=== PATIENT | female | born 1950 | race Caucasian/White ===

== ENCOUNTER 2021-07-30 05:31 | Day surgery (SDC) | payer MEDICARE ==
[~2021-07-30] VITALS: Ht 163 cm; Wt 67.0 kg
[~2021-07-30 05:31] MED LIST: ADVAIR 100-501 EACH INH; AMARYL2 MG PO; ASPIRIN CHEWABL81 MG PO; FLONASE ALLER15.8 ML; JANUVIA50 MG PO; LOVAZA1 GM PO; METFORMIN HCL500 MG PO; PRAVACHOL20 MG PO; PRINIVIL10 MG PO; SINGULAIR10 MG PO; SYNTHROID100 MCG PO; VITAMIN B122500 MC1 PO; VITAMIN D310 MC4 PO
[2021-07-31 06:40] LABS: BASOPHIL 0.2 % (0-2); EOSINOPHIL 0.3 % (0-7); HCT 30.5 % (37.0-47.0); HGB 9.8 g/dl (12.5-16.0); LYMPHOCYTE 11.2 % (15-48); MCH 32.1 pg (25.0-31.0); MCHC 32.1 g/dL (32.0-36.0); MPV 9.2 fL (6.0-9.5); NEUTROPHIL 80.8 % (41-80); NRBC 0; PLT 128 K/uL (150-400); RBC 3.05 M/uL (4.20-5.40); RDW 14.2 % (11.5-14.0)
[2021-07-31 07:07] LABS: BUN/CREAT RATIO (CALC) 14.9 RATIO; CREATININE 0.74 mg/dL (0.51-0.95); POTASSIUM 4.6 mmol/L (3.5-5.1)
[2021-07-31] MEDS ORDERED: XARELTO10 MG PO (09:04)
[2021-07-31] MEDS ORDERED: OXYCODONE-ACET1 EAC1 PO (09:04)
[2021-07-31] MEDS ORDERED: FEOSOL325 MG PO (09:04)
--- NOTE | 2021-07-31 14:05 | NUR ---
PT TO D/C HOME. HER DAUGHTER WILL BE ASSISTING HER IN HER RECOVER. PT,. MORE A ROLLING WALKER AND 10/30. SHE REQUESTS [facility] FOR PT. PER GENE AT [facility] THE [facility] WILL BE $106.83. ADVISED PT AND BISHNU ORTHO LIASION.
== END 2021-07-31 12:10 | disposition home or self-care (01) ==
LOC: FAS 05:31 → FOR 07:00 → FAS 07:00 → FMS 08:57 → FAS 07-31 12:10
PROVIDERS: Legal Medicine
DX: M16.11 Unilateral primary osteoarthritis, right hip (principal); E11.9 Type 2 diabetes mellitus without complications; I10 Essential (primary) hypertension; E03.9 Hypothyroidism, unspecified; E78.5 Hyperlipidemia, unspecified; Z79.01 Long term (current) use of anticoagulants; Z79.82 Long term (current) use of aspirin; Z88.1 Allergy status to other antibiotic agents; Z88.0 Allergy status to penicillin; Z88.8 Allergy status to other drugs, medicaments and biological substances
CPT/HCPCS: 36415; 73501; 80048; 82962; 85025; 86850; 86900; 86901; 94010; 94762; 97162; 97166; 97530-GP; 97535; C1776; J0171; J1100; J1170; J1885; J2250; J2270; J2405; J2704; J2795; J3010; J7120